=== PATIENT | female | born 1965 | race African-American/Black ===

== ENCOUNTER 2020-07-11 07:23 | Emergency (ER) | payer BC ==
--- NOTE | 2020-07-11 08:59 | RAD ---
Chest one view HISTORY: Cough. Fever. FINDINGS: Cardiac silhouette and pulmonary vasculature are unremarkable. Mediastinum is midline. Ill-defined patchy areas of predominantly peripheral groundglass infiltrate and interstitial thickeni ng involve each lung. No lobar consolidation or evidence of pneumothorax. IMPRESSION : Hazy bilateral infiltrates. Correlate for COVID pneumonitis.
[2020-07-11 17:55] LABS: SARS-CoV-2 PCR by NAA DETECTED (NotDetected)
== END 2020-07-11 09:25 | disposition home or self-care (01) ==
LOC: ERS 07:23
DX: U07.1 COVID-19 (principal)
CPT/HCPCS: 71045; 87635; 87804; U0003; U0005

== ENCOUNTER 2020-11-02 06:39 | Emergency (ER) | payer BC ==
[2020-11-02] MEDS ORDERED: Ketorolac Tromethamine 30 MG/ML VIAL ONE (06:51)
== END 2020-11-02 08:12 | disposition home or self-care (01) ==
LOC: ERS 06:39
DX: M54.41 Lumbago with sciatica, right side (principal)
CPT/HCPCS: 96372; 99283; J1885

== ENCOUNTER 2020-12-01 07:02 | Emergency (ER) | payer BC ==
[2020-12-01] MEDS ORDERED: Ketorolac Tromethamine 30 MG/ML VIAL ONE (07:36)
== END 2020-12-01 08:17 | disposition home or self-care (01) ==
LOC: ERS 07:02
DX: M54.41 Lumbago with sciatica, right side (principal)
CPT/HCPCS: 96372; 99283; J1885